=== PATIENT | female | born 1980 | race African-American/Black ===

== ENCOUNTER 2016-12-08 15:09 | Emergency (ER) | payer SELFPAY ==
[~2016-12-08] VITALS: Ht 157.5 cm; Wt 86.0 kg
[~2016-12-08 15:09] MED LIST: AMOX875 PO; ATEN-102 PO; CHLO.12%30 SSP; IBUP600T26 PO; ULTR50TA PO
[2016-12-08 15:11] VITALS: BP 168/107; PULSE 105; RESP 15; TEMP 98; O2SAT 98
--- NOTE | 2016-12-08 15:41 | PD ---
Physical Exam Date Seen by Provider: Dec 08, 2016 Time Seen by Provider: 15:37 Narrative Patient seen in triage with complaints of High Blood pressure and Head Ache. Patient has been out of her B/P meds for 2 months. Patient denies other symptoms. HEREDIA is 02/18. Vital signs show B/P of 168/107. patient awaiting Bed Placement. Data Data Last Documented VS Vital Signs Date Time Temp Pulse Resp B/P Pulse Ox O2 Delivery O2 Flow Rate FiO2 12/08/16 15:11 98.0 105 15 168/107 98 MDM Medical Record Reviewed: Yes Supervised Visit with DOROTHEA: Yes Condition: Stable Geoffrey Luciano Dec 08, 2016 15:41
[2016-12-08 17:00] VITALS: O2SAT 97
[2016-12-08] MEDS ORDERED: KETOROLAC TROMETHAMINE 30 MG/ML (IVP) VIAL IVP ONE (18:15)
[2016-12-08] MEDS ORDERED: SODIUM CHLORIDE 0.9% FLUSH 10 ML FLUSH IV FLUSH PRN (18:15)
--- NOTE | 2016-12-08 18:17 | PD ---
HPI Chief Complaint: Medical Clearance Time Seen by Provider: 17:56 Travel History International Travel<30 days: No Contact w/Intl Traveler<30days: No Traveled to known affect area: No History of Present Illness HPI Patient is a 35-year-old female presents with 2 complaints: First complaint is that she's been having some vaginal discharge as well as abdominal pain for the past couple weeks. She is also been having intermittent high blood pressure and headaches and she's not been taking her medications. Patient states that the only places ever gotten her prescription medications for her blood pressure from the emergency department. She has not seen a primary care physician some time. She denies any visual difficulty focalized weakness chest pain shortness of breath dysuria or blood in the urine. Patient's secondary complaint of the abdominal pain and vaginal discharge which she says is white in nature and is intermittent. She got some mild lower quadrant abdominal cramping which is waxing and waning. PFSH Past Medical History Cardiovascular Problems: Yes Diminished Hearing: No Hypertension: Yes ?: Not : 4 Para: 4 Past Surgical History Section: Yes Social History Alcohol Use: No Tobacco Use: No Substance Use: No Allergies-Medications (Allergen,Severity, Reaction): Coded Allergies: No Known Allergies (Unverified , 12/08/16) Reported Meds & Prescriptions Reported Meds & Active Scripts Active Flagyl (Metronidazole) 500 Mg Tab 500 Mg PO BID 7 Days Hydrochlorothiazide 12.5 Mg Cap 12.5 Mg PO DAILY Lisinopril 2.5 Mg Tab 2.5 Mg PO DAILY Reported Atenolol 50 Mg Tab 50 Mg PO BID Review of Systems Except as stated in HPI: all other systems reviewed are Neg Physical Exam Narrative GENERAL: Well-developed well-nourished no apparent distress. SKIN: Focused skin assessment warm/dry. HEAD: Atraumatic. Normocephalic. EYES: Pupils equal and round. No scleral icterus. No injection or drainage. ENT: No nasal bleeding or discharge. Mucous membranes pink and moist. NECK: Trachea midline. No JVD. CARDIOVASCULAR: Regular rate and rhythm. No murmur appreciated. RESPIRATORY: No accessory muscle use. Clear to auscultation. Breath sounds equal bilaterally. GASTROINTESTINAL: Abdomen soft, non-tender, nondistended. Hepatic and splenic margins not palpable. GENITOURINARY: Scant white discharge smooth and not curd-like. No cervical motion tenderness no cervical injection. Bimanual exam is within normal limits. No external lesion. MUSCULOSKELETAL: No obvious deformities. No clubbing. No cyanosis. No edema. NEUROLOGICAL: Awake and alert. No obvious cranial nerve deficits. Motor grossly within normal limits. Normal speech. PSYCHIATRIC: Appropriate mood and affect; insight and judgment normal. Data Data Last Documented VS Orders Complete Blood Count With Diff (12/08/16 18:05) Comprehensive Metabolic Panel (12/08/16 18:05) Lipase (12/08/16 18:05) Prothrombin Time / Inr (Pt) (12/08/16 18:05) Act Partial Throm Time (Ptt) (12/08/16 18:05) Urinalysis - C+S If Indicated (12/08/16 18:05) Iv Access Insert/Monitor (12/08/16 18:05) Ecg Monitoring (12/08/16 18:05) Oximetry (12/08/16 18:05) Sodium Chloride 0.9% Flush (Ns Flush) (12/08/16 18:15) Ketorolac Inj (Toradol Inj) (12/08/16 18:15) Ed Urine Pregnancytest Poc (12/08/16 18:05) Wet Prep Profile (12/08/16 18:05) Gc And Chlamydia Pcr (12/08/16 18:05) Labs MDM Medical Decision Making Medical Screen Exam Complete: Yes Emergency Medical Condition: Yes Differential Diagnosis BV, CVA, STD, headache, hypertension. Narrative Course Patient was roomed in emergency department, she appears well and in no apparent distress. Patient's physical exam is consistent with a mild BV, did discuss with patient her STD risk and she states is fairly small. For that reason we' ll hold off on treating her at this time. Discussed we will call her if her test comes back positive and she states that her phone number we have on record as her phone number. Her blood pressure is significantly elevated and I will place her on medications for this. Discussed that she needs follow-up with a primary care provider the [facility] for further evaluation of high blood pressure. Otherwise she is a somatic from it and is stable for discharge. Diagnosis Primary Impression: BV (bacterial vaginosis) Additional Impressions: Hypertension HEREDIA (headache) Additional Instructions: Follow-up with her primary care provider or the [facility]. Med/Other Pt SpecificInfo: Prescription(s) given Scripts Metronidazole (Flagyl)500 Mg [id number] Mg PO BID 7 Days Ref 0 Prov:Harvinder Gonsalez MD 12/08/16 Hydrochlorothiazide 12.5 Mg Cap12.5 Mg PO DAILY #30 CAP Ref 0 Prov:Harvinder Gonsalez MD 12/08/16 Lisinopril 2.5 Mg Tab2.5 Mg PO DAILY #30 TAB Ref 0 Prov:Harvinder Gonsalez MD 12/08/16 Disposition: 01 DISCHARGE HOME Condition: Stable Harvinder Gonsalez MD Dec 08, 2016 18:16 Urine Protein 30 mg/dL Urine Glucose (UA) NEG mg/dL Urine Ketones TRACE mg/dL Urine Occult Blood NEG Urine Nitrite NEG Urine Bilirubin NEG Urine Urobilinogen 4.0 MG/DL Urine Leukocyte Esterase NEG Urine RBC 1 /hpf Urine WBC 1 /hpf Urine Squamous Epithelial 1 /hpf Cells Urine Mucus FEW /lpf Microscopic Urinalysis Comment CULT NOT INDICATED Sodium Level 141 MEQ/L Potassium Level 3.7 MEQ/L Chloride Level 104 MEQ/L Carbon Dioxide Level 33.2 MEQ/L Anion Gap 4 MEQ/L Blood Urea Nitrogen 9 MG/DL Creatinine 1.07 MG/DL Estimat Glomerular Filtration 71 ML/MIN Rate Random Glucose 88 MG/DL Calcium Level 8.7 MG/DL Total Bilirubin 0.3 MG/DL Aspartate Amino Transf 11 U/L (AST/SGOT) Alanine Aminotransferase 15 U/L (ALT/SGPT) Alkaline Phosphatase 52 U/L Total Protein 7.2 GM/DL Albumin 3.2 GM/DL Lipase 127 U/L Clue Cells (Wet Prep) NONE SEEN Vaginal Trichomonas (Wet Prep) NONE SEEN Vaginal Yeast (Wet Prep) NONE SEEN MDM Diagnosis Primary Impression: BV (bacterial vaginosis) Additional Impressions: Hypertension HEREDIA (headache) Additional Instructions: Follow-up with her primary care provider or the [facility] clinic. Med/Other Pt SpecificInfo: Prescription(s) given Scripts Metronidazole (Flagyl)500 Mg [id number] Mg PO BID 7 Days Ref 0 Prov:Harvinder Gonsalez MD 12/08/16 Hydrochlorothiazide 12.5 Mg Cap12.5 Mg PO DAILY #30 CAP Ref 0 Prov:Harvinder Gonsalez MD 12/08/16 Lisinopril 2.5 Mg Tab2.5 Mg PO DAILY #30 TAB Ref 0 Prov:Harvinder Gonsalez MD 12/08/16 Disposition: 01 DISCHARGE HOME Condition: Stable Harvinder Gonsalez MD Dec 08, 2016 18:16
[2016-12-08] MEDS ORDERED: ATEN50TA PO (18:28)
[2016-12-08] MEDS ORDERED: LISI2.5T3 PO ×2 (18:33→21:16)
[2016-12-08] MEDS ORDERED: HYDR12.57 PO ×2 (18:33→21:16)
[2016-12-08 18:48] LABS: ANION GAP 4 MEQ/L (5-15); AST (GOT) 11 U/L (15-37); BICARBONATE 33.2 MEQ/L (21.0-32.0); BLOOD UREA NITROGEN 9 MG/DL (7-18); CHLORIDE 104 MEQ/L (98-107); GLOMERULAR FILTRATION RATE 71 ML/MIN (>89); POTASSIUM 3.7 MEQ/L (3.5-5.1); SODIUM (NA) 141 MEQ/L (136-145)
[2016-12-08 18:50] LABS: APTT (PATIENT) 28.6 SEC (24.3-30.1); PROTHROMBIN TIME - PATIENT 11.4 SEC (9.8-11.6)
[2016-12-08 18:51] LABS: AUTOMATED NEUTROPHIL # 2.8 TH/MM3 (1.8-7.7); BASOPHIL % 0.6 % (0.0-2.0); EOSINOPHIL % 0.4 % (0.0-4.0); HEMATOCRIT 36.2 % (35.0-46.0); HEMO FLAGS DIFF FINAL; LYMPHOCYTE # 1.6 TH/MM3 (1.0-4.8); MEAN CELL VOLUME 80.5 FL (80.0-100.0); MEAN CORPUSCULAR HEMOGLOBIN 26.3 PG (27.0-34.0); MEAN CORPUSCULAR HGB CONC 32.7 % (32.0-36.0); MONO % 6.7 % (0.0-8.0); NEUT % 58.3 % (16.0-70.0); PLATELET COUNT 214 TH/MM3 (150-450); WHITE BLOOD COUNT 4.8 TH/MM3 (4.0-11.0)
[2016-12-08 18:52] LABS: ALKALINE PHOSPHATASE 52 U/L (45-117); ALT (GPT) 15 U/L (10-53); TOTAL BILIRUBIN ADULT 0.3 MG/DL (0.2-1.0)
[2016-12-08 19:02] LABS: BLOOD, URINE NEG (NEG); COMMENT (UR) CULT NOT INDICATED; CULTURE IF INDICATED CULT NOT INDICATED; GLUCOSE,URINE NEG (NEG); KETONE, URINE TRACE mg/dL (NEG); MUCUS URINE FEW /lpf (OCC); NITRITE,URINE NEG (NEG); PH, URINE 6.5 (5.0-8.5); SQUAMOUS EPITHELIAL CELL URINE 1 /hpf (0-5); URINE COLOR YELLOW (YELLW/STRAW)
[2016-12-08 21:02] VITALS: BP 189/95; PULSE 94; RESP 16; O2SAT 97
[2016-12-08] MEDS ORDERED: METR-1 PO (21:16)
[2016-12-08 22:41] LABS: CHLAMYDIA PCR DETECTED (NOT DETECT); NEISSERIA PCR NOT DETECTED (NOT DETECT)
== END 2016-12-08 21:43 | disposition home or self-care (01) ==
LOC: NEPA 15:09
DX: N76.0 Acute vaginitis (principal); I10 Essential (primary) hypertension; R51 Headache
CPT/HCPCS: 80053; 81001; 83690; 84703; 85025; 85610; 85730; 87210; 87491; 87591; 96374; 99284; J1885